=== PATIENT | female | born 2000 | race Caucasian/White ===

== ENCOUNTER 2022-05-21 01:29 | Emergency (ER) | payer SELFPAY ==
[~2022-05-21] VITALS: Ht 167.6 cm; Wt 50.0 kg
[2022-05-21 01:30] VITALS: BP 140/80
== END 2022-05-21 04:39 | disposition left against medical advice (07) ==
LOC: M ED 01:29
DX: Z53.21 Procedure and treatment not carried out due to patient leaving prior to being seen by health care provider (principal)

== ENCOUNTER 2022-05-21 14:23 | Emergency (ER) | payer MEDICAID, OTHER, SELFPAY ==
[~2022-05-21] VITALS: Ht 167.6 cm; Wt 48.9 kg
[2022-05-21 15:46] LABS: BASO % 0.8 % (0.0-1.0); EOS # 0.1 10^3/uL (0.0-0.5); HEMATOCRIT 40.2 % (36.0-47.0); HEMOGLOBIN 13.3 g/dl (12.0-15.5); LYMPH # 2.1 10^3/uL (1.5-5.0); LYMPH % 43.8 % (24.0-44.0); MEAN CORPUSCULAR HEMOGLOBIN 29.8 pg (27.0-33.0); MEAN CORPUSCULAR HGB CONC 33.1 g/dl (32.0-36.5); MEAN CORPUSCULAR VOLUME 89.9 fl (80.0-96.0); MONO # 0.6 10^3/uL (0.0-0.8); MONO % 11.5 % (2.0-8.0); NEUTROPHILS % 42.7 % (36.0-66.0); PLATELET COUNT, AUTOMATED 298 10^3/uL (150-450); RED BLOOD COUNT 4.47 10^6/uL (4.00-5.40); WHITE BLOOD COUNT 4.8 10^3/uL (4.0-10.0)
[2022-05-21 16:20] LABS: BLOOD UREA NITROGEN 10 MG/DL (7-18); CALCIUM LEVEL 9.5 MG/DL (8.5-10.1); CARBON DIOXIDE LEVEL 31 MEQ/L (21-32); CHLORIDE LEVEL 104 MEQ/L (98-107); CREATININE FOR GFR 0.88 MG/DL (0.55-1.30); GLOMERULAR FILTRATION RATE > 60.0 (>60); GLUCOSE, FASTING 96 MG/DL (70-100); HCG, SERUM QUANTITATIVE < 1.0 MIU/ML; SODIUM LEVEL 139 MEQ/L (136-145)
[2022-05-21 17:56] VITALS: BP 110/78
== END 2022-05-21 18:02 | disposition home or self-care (01) ==
LOC: M ED 14:23
DX: Z30.431 Encounter for routine checking of intrauterine contraceptive device (principal); N80.9 Endometriosis, unspecified; J45.909 Unspecified asthma, uncomplicated; F17.290 Nicotine dependence, other tobacco product, uncomplicated

== ENCOUNTER → 2023-03-16 | Outpatient (CLI) | payer OTHER, MEDICAID | LOC: M WHC 08:53 | PROVIDERS: ATTEND Obstetrics & Gynecology | DX: Z34.92 Encounter for supervision of normal pregnancy, unspecified, second trimester (principal) ==

== ENCOUNTER → 2023-04-01 | Outpatient (CLI) | payer MEDICAID ==
[2023-04-01 16:18] LABS: HEMATOCRIT 32.8 % (36.0-47.0); HEMOGLOBIN 10.9 g/dl (12.0-15.5); MEAN CORPUSCULAR HEMOGLOBIN 30.8 pg (27.0-33.0); MEAN CORPUSCULAR HGB CONC 33.2 g/dl (32.0-36.5); MEAN CORPUSCULAR VOLUME 92.7 fl (80.0-96.0); PLATELET COUNT, AUTOMATED 324 10^3/uL (150-450); RED BLOOD COUNT 3.54 10^6/uL (4.00-5.40); WHITE BLOOD COUNT 8.8 10^3/uL (4.0-10.0)
[2023-04-01 17:10] LABS: HIV 1&2 SCREEN NEGATIVE (NEGATIVE)
[2023-04-01 17:17] LABS: HEPATITIS C VIRUS ABY INDEX 0.13 INDEX (<0.8)
[2023-04-01 17:41] LABS: GC DNA AMPLIFICATION NEGATIVE (NEGATIVE)
== END ==
LOC: M PLALAB 12:46
PROVIDERS: ATTEND Obstetrics & Gynecology
DX: Z34.92 Encounter for supervision of normal pregnancy, unspecified, second trimester (principal)